=== PATIENT | female | born 1960 | race Caucasian/White ===

== ENCOUNTER → 2018-01-09 | Outpatient (CLI) | payer BC | END | disposition home or self-care (01) | LOC: RAD 09:10 | PROVIDERS: ATTEND Surgery | DX: K76.89 Other specified diseases of liver (principal); K83.5 Biliary cyst | CPT/HCPCS: 76700; 78227; A9537 ==

== ENCOUNTER 2019-03-31 10:50 | Outpatient (CLI) | payer BC ==
[2019-03-31] MEDS ORDERED: MULT-658 PO (11:18)
[2019-03-31] MEDS ORDERED: CHOL100011 PO (11:18)
[2019-03-31] MEDS ORDERED: CALC-534 PO (11:18)
[2019-03-31] MEDS ORDERED: tagamet PO (11:19)
[2019-03-31 11:50] LABS: BASOPHILS # (AUTO) 0.03 x10^3/uL (0-0.1); BASOPHILS % (AUTO) 1 % (0-1); EOSINOPHILS # (AUTO) 0.04 x10^3/uL (0-0.4); EOSINOPHILS % (AUTO) 1 % (1-7); LYMPHOCYTES # (AUTO) 1.36 x10^3/uL (1-3.4); LYMPHOCYTES % (AUTO) 32 % (22-44); MD NO; MEAN CORPUSCULAR HEMOGLOBIN 28.8 pg (27.0-34.8); MEAN CORPUSCULAR HGB CONC 34.4 g/dL (32.4-35.8); MEAN CORPUSCULAR VOLUME 83.7 fL (80-100); MEAN PLATELET VOLUME 9.3 fL (7.4-10.4); MONOCYTES # (AUTO) 0.41 x10^3/uL (0.2-0.8); MONOCYTES % (AUTO) 10 % (2-9); NEUTROPHILS # (AUTO) 2.41 x10^3/uL (1.8-6.8); NEUTROPHILS % (AUTO) 57 % (42-75); PLATELET COUNT 190 x10^3/uL (130-400); RED BLOOD COUNT 4.66 x10^6/uL (3.82-5.3); RED CELL DISTRIBUTION WIDTH 13.4 % (9.6-15.2)
[2019-03-31 12:03] LABS: ANION GAP 4 mmol/L (5-15); CALCIUM 9.7 mg/dL (8.5-10.1); CHLORIDE 109 mmol/L (98-107)
[2019-03-31 12:05] LABS: CREATININE 0.92 mg/dL (0.55-1.02)
[2019-03-31 12:06] LABS: INTERNATIONAL NORMALIZED RATIO 0.98 (0.93-1.1); PROTHROMBIN TIME 10.3 Seconds (9.6-11.5)
[2019-03-31 12:09] LABS: MICROSCOPIC NOT IND
[2019-03-31 12:16] LABS: CULTURE INDICATED? NO
== END 2019-03-31 23:59 | disposition home or self-care (01) ==
LOC: STAR 10:50
PROVIDERS: ATTEND Neurological Surgery
DX: Z01.818 Encounter for other preprocedural examination (principal); M50.30 Other cervical disc degeneration, unspecified cervical region; M50.323 Other cervical disc degeneration at C6-C7 level
CPT/HCPCS: 36415; 71046; 72050; 80048; 81003; 85025; 85610; 85730; 93005

== ENCOUNTER 2019-04-15 10:08 | Observation (INO) | payer BC ==
[~2019-04-15] VITALS: Ht 162.6 cm; Wt 67.3 kg
[~2019-04-15 10:08] MED LIST: BACITRACIN 50,000 UNIT ONE; BUPIVACAINE/EPI 0.5% 1:200K ONE; CALC-534 PO; CHOL100011 PO; MULT-658 PO; THROMBIN 5,000 UNIT VIAL TP ONE; tagamet PO
[2019-04-15] MEDS ORDERED: LACTATED RINGERS 1,000 ML IV SCH (10:28)
[2019-04-15] MEDS ORDERED: RANI75TA12 PO (10:29)
[2019-04-15] MEDS ORDERED: GABAPENTIN 300 MG CAPSULE PO ONE (10:30)
[2019-04-15] MEDS ORDERED: ACETAMINOPHEN 500 MG TABLET PO ONE (10:30)
[2019-04-15 10:33] VITALS: BP 118/77
[2019-04-15] MEDS ORDERED: FENTANYL PF 250 MCG/5ML ONE (12:54)
[2019-04-15] MEDS ORDERED: MIDAZOLAM 1 MG/ML, 2ML ONE (12:54)
[2019-04-15] MEDS ORDERED: CEFAZOLIN 1,000 MG ONE (12:58)
[2019-04-15] MEDS ORDERED: GLYCOPYRROLATE 0.2MG/1ML, 5ML ONE (12:58)
[2019-04-15] MEDS ORDERED: PROPOFOL 10 MG/ML, 20ML ONE (12:58)
[2019-04-15] MEDS ORDERED: ONDANSETRON 2MG/ML, 2ML ONE (12:58)
[2019-04-15] MEDS ORDERED: NEOSTIGMINE 1 MG/ML, 10ML ONE (12:58)
[2019-04-15] MEDS ORDERED: ROCURONIUM 10MG/ML,5ML ONE (12:58)
[2019-04-15] MEDS ORDERED: DEXAMETHASONE 4 MG/ML, 1ML ONE (12:58)
[2019-04-15] MEDS ORDERED: PROPOFOL 50 ML ONE (13:11)
[2019-04-15] MEDS ORDERED: FENTANYL PF 100 MCG/2ML ONE ×2 (13:26→16:27)
[2019-04-15] MEDS ORDERED: PHENYLEPHRINE 10 MG/ML ONE (14:24)
[2019-04-15] MEDS ORDERED: PROMETHAZINE 25 MG/ML, 1ML IV PRN (14:30)
[2019-04-15] MEDS ORDERED: PROMETHAZINE 25 MG SUPP PR PRN (14:30)
[2019-04-15] MEDS ORDERED: ONDANSETRON 2MG/ML, 2ML IV PRN (14:30)
[2019-04-15] MEDS ORDERED: MEPERIDINE/PF 25MG/0.5ML IVPush PRN (14:30)
[2019-04-15] MEDS ORDERED: MORPHINE SULFATE 4 MG/ML, 1ML IVPush PRN (14:30)
[2019-04-15] MEDS ORDERED: hydrALAzine 20 MG/ML, 1ML IV PRN (14:30)
[2019-04-15] MEDS ORDERED: LABETALOL 5MG/ML, 20ML IV PRN (14:30)
[2019-04-15] MEDS ORDERED: OXYcodone 5 MG/5 ML ORAL.SOL UDC PO PRN (14:30)
[2019-04-15] MEDS ORDERED: ONDANSETRON ODT 8 MG PO PRN (14:30)
[2019-04-15] MEDS ORDERED: HALOPERIDOL 5 MG/ML IV PRN ×2 (14:30)
[2019-04-15] MEDS ORDERED: HYDROmorphone 2 MG/ML, 1ML IVPush PRN (14:30)
[2019-04-15] MEDS ORDERED: PROMETHAZINE 25 MG/ML, 1ML IM PRN ×3 (14:30→16:00)
[2019-04-15] MEDS ORDERED: PROMETHAZINE 12.5 MG SUPP PR PRN (14:30)
[2019-04-15] MEDS ORDERED: MAGNESIUM HYDROXIDE 8%, 30ML UDC PO PRN (16:00)
[2019-04-15] MEDS ORDERED: CYCLOBENZAPRINE 10 MG TABLET PO PRN (16:00)
[2019-04-15] MEDS ORDERED: PHARMACY MAY ADJ FOR RENAL FX MC PRN (16:00)
[2019-04-15] MEDS ORDERED: DIAZEPAM 5 MG TABLET PO PRN (16:00)
[2019-04-15] MEDS ORDERED: MEPERIDINE/PF 100 MG/ML IM PRN (16:00)
[2019-04-15] MEDS ORDERED: HYDROmorphone 1 MG/ML, 1ML INJ IVPush PRN (16:00)
[2019-04-15] MEDS ORDERED: BISACODYL 10 MG SUPP PR PRN (16:00)
[2019-04-15] MEDS ORDERED: ONDANSETRON 2MG/ML, 2ML IVPush PRN (16:00)
[2019-04-15] MEDS ORDERED: DIPHENHYDRAMINE 50 MG/ML, 1ML IVPush PRN (16:00)
[2019-04-15] MEDS ORDERED: OXYcodone 5 MG/5 ML ORAL.SOL UDC ONE (16:27)
[2019-04-15] MEDS: FENTANYL PF 100 MCG/2ML IV PRN ×2 (16:43→17:01)
[2019-04-15] MEDS: HYDROcodone/APAP 10/325 MG TABLET PO PRN (20:38)
[2019-04-15] MEDS: NS + 20MEQ KCL 1,000 ML IV SCH (20:39)
[2019-04-15] MEDS: SODIUM CHLORIDE FLUSH 10ML SYR IVF SCH (20:39)
[2019-04-15 21:32] VITALS: BP 100/68
[2019-04-15] MEDS: CEFAZOLIN PMX 1GM/50ML 50 ML IVPB SCH (23:21)
[2019-04-16 00:02] VITALS: BP 100/65
[2019-04-16] MEDS: HYDROcodone/APAP 10/325 MG TABLET PO PRN ×3 (02:22→10:02)
[2019-04-16 04:14] VITALS: BP 100/65
[2019-04-16] MEDS: CEFAZOLIN PMX 1GM/50ML 50 ML IVPB SCH (06:13)
[2019-04-16 07:59] VITALS: BP 100/61
[2019-04-16] MEDS ORDERED: SENNA/DOCUSATE TABLET PO SCH (09:00)
[2019-04-16] MEDS: SODIUM CHLORIDE FLUSH 10ML SYR IVF SCH (09:40)
[2019-04-16] MEDS: NS + 20MEQ KCL 1,000 ML IV SCH (09:41)
== END 2019-04-16 10:35 | disposition home or self-care (01) ==
LOC: OUT 10:08 → ORIP 15:53 → 4NOR 17:38 → DCLOUNGE 04-16 10:12 → 4WST 04-16 10:24 → DCLOUNGE 04-16 10:33
PROVIDERS: ADMIT Neurological Surgery; ATTEND Neurological Surgery
DX: M48.02 Spinal stenosis, cervical region (principal); M54.12 Radiculopathy, cervical region; M50.323 Other cervical disc degeneration at C6-C7 level; K21.9 Gastro-esophageal reflux disease without esophagitis; G89.18 Other acute postprocedural pain; Z79.899 Other long term (current) drug therapy
CPT/HCPCS: 63045; 72040; 96365; 96366; C1713; G0378; J0690; J1100; J2250; J2370; J2405; J2704; J2710; J3010; J3480; J7120

== ENCOUNTER → 2019-04-24 | Outpatient (CLI) | payer BC ==
[~2019-04-24] MED LIST changes: -BACITRACIN 50,000 UNIT ONE; -BUPIVACAINE/EPI 0.5% 1:200K ONE; +GADOBUTROL 7.5 MMOL/7.5 ML PFS ONE; +RANI75TA12 PO; -THROMBIN 5,000 UNIT VIAL TP ONE
== END | disposition home or self-care (01) ==
LOC: RAD 17:07
PROVIDERS: ATTEND Registered Nurse Registered Nurse First Assistant
DX: M50.123 Cervical disc disorder at C6-C7 level with radiculopathy (principal); M48.02 Spinal stenosis, cervical region; M25.78 Osteophyte, vertebrae; Z98.890 Other specified postprocedural states
CPT/HCPCS: 72156; A9585